=== PATIENT | female | born 1960 | race Caucasian/White ===

== ENCOUNTER 2016-12-30 14:05 | Emergency (ER) | payer OTHER ==
[~2016-12-30] VITALS: Ht 160 cm; Wt 80.7 kg
[~2016-12-30 14:05] MED LIST: ACETAMINOPHEN-H1 TA2 PO; CALCIUM WITH V1 EAC1 PO; CIPRO500 MG PO; FLAGYL500 MG PO; HYDROCODON-ACE1 EACH PO; IBU800 MG PO; LISINOPRIL10 M1 PO; MOTRIN800 MG PO; NORCO 5-325 TA1 EACH PO; NORFLEX100 MG PO; PREDNISONE10 MG PO; PRILOSEC20 M2 PO; VITAMIN D50000 I3 PO; ZANTAC 150150 MG PO; ZOVIRAX800 MG PO
[2016-12-30] MEDS ORDERED: IBU800 MG PO (15:41)
== END 2016-12-30 15:48 | disposition home or self-care (01) ==
LOC: ED 14:05
DX: S93.402A Sprain of unspecified ligament of left ankle, initial encounter (principal); F17.200 Nicotine dependence, unspecified, uncomplicated; I10 Essential (primary) hypertension; Z98.51 Tubal ligation status; Z90.711 Acquired absence of uterus with remaining cervical stump; Z79.899 Other long term (current) drug therapy; X58.XXXA Exposure to other specified factors, initial encounter; Y93.89 Activity, other specified; Y92.89 Other specified places as the place of occurrence of the external cause; Y99.9 Unspecified external cause status

== ENCOUNTER 2017-09-22 12:33 | Emergency (ER) | payer SELFPAY ==
[~2017-09-22] VITALS: Ht 160 cm; Wt 81.6 kg
== END 2017-09-22 14:37 | disposition home or self-care (01) ==
LOC: ED 12:33
DX: J11.1 Influenza due to unidentified influenza virus with other respiratory manifestations (principal); I10 Essential (primary) hypertension; F17.200 Nicotine dependence, unspecified, uncomplicated; Z79.899 Other long term (current) drug therapy

== ENCOUNTER → 2017-12-03 | Emergency (ER) | payer SELFPAY ==
[~2017-12-03] VITALS: Ht 161.2 cm; Wt 82.6 kg
[~2017-12-03] MED LIST changes: +AMOXICILLIN500 M2 PO; +LOMOTIL 2.5-0.1 EACH PO; +ZOFRAN ODT4 MG SL
[2017-12-03 21:30] LABS: BASO % 0.5 % (0.0-1.0); EOS # 0.3 10*3/uL (0.0-0.4); EOS % 4.9 % (1.0-4.0); HEMATOCRIT 43.2 % (37.0-47.0); HEMOGLOBIN 14.5 g/dl (12.0-16.0); LYMPH # 1.8 10*3/uL (1.3-4.4); LYMPH % 32.9 % (27.0-41.0); MEAN CELL VOLUME 91.9 fl (81.0-99.0); MEAN CORPUSCULAR HGB 30.9 pg (27.0-31.0); MEAN CORPUSCULAR HGB CONC 33.6 g/dl (33.0-37.0); MEAN PLATELET VOLUME 10.4 fl (9.6-12.3); MONO # 0.5 10*3/uL (0.1-1.0); MONO % 8.4 % (3.0-9.0); NEUT # 2.9 10*3/uL (2.3-7.9); NEUT % 52.6 % (47.0-73.0); PLATELET COUNT AUTOMATED 304 10*3/uL (130-400); RED CELL DISTRI WIDTH 12.1 % (0-14.5); WHITE BLOOD COUNT 5.5 10*3/uL (4.8-10.8)
[2017-12-03 21:42] LABS: BUN 13 mg/dl (7-24); CHLORIDE 104 mmol/L (98-107); CREATININE 0.91 mg/dL (0.55-1.02); POTASSIUM 3.6 mmol/L (3.5-5.1); SODIUM 139 mmol/L (136-145)
== END ==
LOC: ED 20:54
PROVIDERS: Emergency Medicine Emergency Medical Services
DX: B34.9 Viral infection, unspecified (principal); I10 Essential (primary) hypertension; Z98.51 Tubal ligation status; Z90.710 Acquired absence of both cervix and uterus; Z79.899 Other long term (current) drug therapy

== ENCOUNTER 2018-10-10 22:19 | Emergency (ER) | payer SELFPAY ==
--- NOTE | ~2018-10-10 | EKG ---
[place], [place] ELECTROCARDIOGRAM REPORT NAME: SHABNAM HEBERT UNIT #: [id number] ROOM: DOCTOR: EPIPHANY DRAFT REPORT BIRTHDATE: [birth year] [facility] Test Date: 2018-10-10 Test Time: 22:18:51 Pat Name: SHABNAM HEBERT Department: Room: Gender: F Home [facility] Lpn: Joshua Cornelius : 1960 Requested By: MARY MCKEON Order Number: [id number] Reading MD: Bala Mercado MD Measurements Intervals [place] Rate: 66 P: 57 GA: 164 QRS: 33 QRSD: 99 T: 34 QT: 383 QTc: 402 Interpretive Statements Sinus rhythm RSR' in V1 or V2, right VCD or RVH Electronically Signed On 10-12-2018 19:24:06 PST by Bala Mercado MD CM:EKGRPT:ELECTROCARDIOGRAM REPORT 23 MARY DEVRIES DRAFT REPORT MARY MCKEON DO
--- NOTE | ~2018-10-10 | EKG ---
[place], [place] ELECTROCARDIOGRAM REPORT NAME: SHABNAM HEBERT UNIT #: [id number] ROOM: DOCTOR: EPIPHANY DRAFT REPORT BIRTHDATE: [birth year] [facility] Test Date: 2018-10-11 Test Time: 01:28:11 Pat Name: SHABNAM HEBERT Department: Room: Gender: F [place] Selector: Joshua Cornelius : 1960 Requested By: MARY MCKEON Order Number: [id number] Reading MD: Bala Mercado MD Measurements Intervals [place] Rate: 60 P: 58 CT: 166 QRS: 45 QRSD: 100 T: 36 QT: 413 QTc: 413 Interpretive Statements Sinus rhythm Electronically Signed On 10-14-2018 7:14:39 PST by Bala Mercado MD CM:EKGRPT:ELECTROCARDIOGRAM REPORT [id number] MARY DEVRIES DRAFT REPORT MARY MCKEON DO
[2018-10-10 22:35] LABS: BASO # 0.1 10*3/uL (0.0-0.1); BASO % 0.5 % (0.0-1.0); EOS # 0.4 10*3/uL (0.0-0.4); EOS % 4.3 % (1.0-4.0); HEMATOCRIT 43.7 % (37.0-47.0); HEMOGLOBIN 14.9 g/dl (12.0-16.0); LYMPH # 3.9 10*3/uL (1.3-4.4); LYMPH % 41.5 % (27.0-41.0); MEAN CELL VOLUME 93.2 fl (81.0-99.0); MEAN CORPUSCULAR HGB 31.8 pg (27.0-31.0); MEAN CORPUSCULAR HGB CONC 34.1 g/dl (33.0-37.0); MONO # 0.6 10*3/uL (0.1-1.0); MONO % 6.7 % (3.0-9.0); NEUT # 4.4 10*3/uL (2.3-7.9); NEUT % 46.6 % (47.0-73.0); PLATELET COUNT AUTOMATED 358 10*3/uL (130-400); RED BLOOD COUNT 4.69 10*6/uL (4.10-5.10); RED CELL DISTRI WIDTH 12.1 % (0-14.5); WHITE BLOOD COUNT 9.5 10*3/uL (4.8-10.8)
[2018-10-10 22:45] LABS: ACT PARTIAL THROMBO TIME 22.7 SECONDS (20.8-31.5); INTERNATIONAL NORM RATIO 0.9 (2.0-3.5)
[2018-10-10 22:52] LABS: ALBUMIN 3.7 gm/dl (3.1-4.5); ALKALINE PHOSPHATASE 108 U/L (45-117); BUN 18 mg/dl (7-24); CHLORIDE 106 mmol/L (98-107); POTASSIUM 3.8 mmol/L (3.5-5.1); SGOT/AST 9 IU/L (3-35); SGPT/ALT 22 U/L (12-78); SODIUM 141 mmol/L (136-145); TOTAL PROTEIN 7.5 gm/dL (6.4-8.2); TROPONIN I < 0.015 ng/ml (<0.045)
[2019-04-03] MEDS ORDERED: IBU800 MG PO (19:55)
[2019-04-03] MEDS ORDERED: PREDNISONE20 M1 PO (19:55)
[2019-04-03] MEDS ORDERED: CYCLOBENZAPRINE10 MG PO (19:55)
== END 2018-10-11 02:20 | disposition home or self-care (01) ==
LOC: ED 22:19
PROVIDERS: Emergency Medicine
DX: R00.2 Palpitations (principal); R20.2 Paresthesia of skin; I10 Essential (primary) hypertension; F17.200 Nicotine dependence, unspecified, uncomplicated; Z90.710 Acquired absence of both cervix and uterus; Z79.899 Other long term (current) drug therapy

== ENCOUNTER 2019-10-28 11:55 | Emergency (ER) | payer SELFPAY ==
[~2019-10-28] VITALS: Ht 160 cm; Wt 78.0 kg
[~2019-10-28 11:55] MED LIST changes: +CYCLOBENZAPRINE10 MG PO; +PREDNISONE20 M1 PO
[2019-10-28] MEDS ORDERED: TESSALON PERLE100 M1 PO (12:47)
[2019-10-28] MEDS ORDERED: VALTREX1000 MG PO (12:47)
[2019-10-28] MEDS ORDERED: SEPTDS PO (12:47)
== END 2019-10-28 12:59 | disposition home or self-care (01) ==
LOC: ED 11:55
DX: J32.9 Chronic sinusitis, unspecified (principal); B02.9 Zoster without complications; Z79.899 Other long term (current) drug therapy

== ENCOUNTER 2020-07-23 23:23 | Emergency (ER) | payer SELFPAY ==
[~2020-07-23] VITALS: Ht 162.5 cm; Wt 78.0 kg
[~2020-07-23 23:23] MED LIST changes: +SEPTDS PO; +TESSALON PERLE100 M1 PO; +VALTREX1000 MG PO
== END 2020-07-24 01:31 | disposition home or self-care (01) ==
LOC: ED 23:23
DX: S92.354A Nondisplaced fracture of fifth metatarsal bone, right foot, initial encounter for closed fracture (principal); F17.200 Nicotine dependence, unspecified, uncomplicated; Z79.899 Other long term (current) drug therapy; W22.8XXA Striking against or struck by other objects, initial encounter; Y93.89 Activity, other specified; Y92.89 Other specified places as the place of occurrence of the external cause; Y99.8 Other external cause status